=== PATIENT | female | born 1955 | race Caucasian/White ===

== ENCOUNTER → 2019-04-03 12:36 | Outpatient (CLI) | payer OTHER, SELFPAY ==
--- NOTE | 2019-04-03 12:47 | XR_ITS ---
PROCEDURE: XR CHEST 2V CLINICAL HISTORY: COUGH COMPARISON: No exams were available for comparison FINDINGS: The cardiomediastinal silhouette and pulmonary vascularity are within normal limits. There is a faint nodular density overlying the right upper lobe at the 3rd rib anteriorly. This area measures approximately 8 mm. The remaining lungs are clear. In in no acute bony anomaly. IMPRESSION: No acute finding. Nonspecific nodularity right upper lobe. This may only be be due to summation artifact, hyperostosis of the 4th rib, versus an underlying nodule. Suggest follow-up chest x-ray for confirmation. Dictated by: Juan Rodriguez MD 04/03/2019 13:08 Electronically signed by Juan Rodriguez MD in [place] 04/03/2019 13:08
== END ==
PROVIDERS: PCP Family Medicine; Visit Provider Family Medicine
DX: R05 Cough (principal)
CPT/HCPCS: 71046

== ENCOUNTER → 2019-04-08 14:30 | Outpatient (POV) | payer OTHER, SELFPAY | PROVIDERS: Visit Provider Dermatology | DX: Z00.00 Encounter for general adult medical examination without abnormal findings (principal) ==

== ENCOUNTER → 2019-04-18 14:51 | Outpatient (CLI) | payer OTHER, MEDICARE, SELFPAY ==
--- NOTE | 2019-04-18 15:01 | XR_ITS ---
PROCEDURE: XR CHEST 2V CLINICAL HISTORY: ABNORMAL CHEST X-RAY COMPARISON: XR CHEST 2V from 04/03/2019 FINDINGS: The cardiomediastinal silhouette and pulmonary vascularity are within normal limits. The lungs are clear without infiltrates, suspicious nodules, or pleural effusions. No acute bony abnormalities. IMPRESSION: No acute findings. Dictated by: Spenser Qiu 04/18/2019 15:21 Electronically signed by Spenser Qiu in [place] 04/18/2019 15:21
== END ==
PROVIDERS: PCP Family Medicine; Visit Provider Family Medicine
DX: R93.89 Abnormal findings on diagnostic imaging of other specified body structures (principal)
CPT/HCPCS: 71046

== ENCOUNTER → 2019-05-23 09:43 | Outpatient (CLI) | payer OTHER, MEDICARE, SELFPAY ==
--- NOTE | 2019-05-23 09:50 | MM_ITS ---
PROCEDURE: MM DIG SCREENING MAMM BI W/CAD CLINICAL INDICATION: SCREENING COMPARISON: No exams were available for comparison TECHNIQUE: Standard CC and MLO images were obtained. R2 CAD reviewed. FINDINGS: Average fibroglandular tissue. Negative right breast. 4 mm asymmetric densities superior left breast possibly lateral. Suggest spot compression views, mL view and left breast ultrasound for further evaluation.. IMPRESSION: BI-RAD Category: 0 Need Additional Imaging Evaluation FOLLOW-UP: IMM Immediate Follow-up Recommended (A letter has been sent to the patient regarding results of the study.) Dictated by: Juan Rodriguez MD 06/03/2019 12:37 Electronically signed by Juan Rodriguez MD in [place] 06/03/2019 12:37
== END ==
PROVIDERS: PCP Family Medicine; Visit Provider Family Medicine
DX: Z12.31 Encounter for screening mammogram for malignant neoplasm of breast (principal)
CPT/HCPCS: 77067

== ENCOUNTER → 2019-06-25 13:48 | Outpatient (CLI) | payer OTHER, MEDICARE, SELFPAY ==
--- NOTE | 2019-06-25 | US_ITS ---
PROCEDURE: MM DIG MAMM DX UNILAT LT CAD CLINICAL INDICATION: ABNORMAL MAMM Follow-up abnormal mammogram COMPARISON: MM DIG SCREENING MAMM BI W/CAD from 05/23/2019 US BREAST LT COMPLETE from 06/25/2019 TECHNIQUE: Spot-compression views performed with rolled views and left breast ultrasound FINDINGS: Average fibroglandular tissue. Minimal asymmetry noted in the superior aspect of the left breast which appears to compress out on the focal spot compression view. Not readily apparent on the CC view. Left breast ultrasound: There is an oval area of decreased echogenicity at 1 o'clock measuring 6 x 2 mm probably related to fibroglandular tissue. No malignant appearing mass or malignant-appearing microcalcification. IMPRESSION: Probably benign findings. No convincing evidence of malignancy. Recommend six-month mammographic and sonographic follow-up BI-RAD Category: 3 Probably Benign Finding Short Term Follow-up FOLLOW-UP: 6M 6Month Follow-up (A letter has been sent to the patient regarding results of the study.) Dictated by: Juan Rodriguez MD 06/28/2019 11:55 Electronically signed by Juan Rodriguez MD in [place] 06/28/2019 11:55
== END ==
PROVIDERS: PCP Family Medicine; Visit Provider Family Medicine
DX: R92.8 Other abnormal and inconclusive findings on diagnostic imaging of breast (principal)
CPT/HCPCS: 76641; 77065

== ENCOUNTER → 2020-05-25 09:41 | Outpatient (CLI) | payer MEDICARE, OTHER, SELFPAY ==
[2020-05-25 10:25] VITALS: PULSE 71; PULSE 75
--- NOTE | 2020-05-25 11:08 | MM_ITS ---
PROCEDURE: MM DIG SCREENING MAMM BI W/CAD Digital Breast Tomosynthesis Included CLINICAL INDICATION: SCREENING There is a history of breast cancer in the patient's maternal great aunt. COMPARISON: MG MM DIG SCREENING MAMM BI W/CAD from 05/23/2019 MG MM DIG MAMM DX UNILAT LT CAD from 06/25/2019 TECHNIQUE: Standard CC and MLO images and 3D Tomosynthesis was obtained. R2 CAD reviewed. FINDINGS: Fibroglandular densities are seen throughout both breast and the findings are bilateral and symmetrical. There are couple of benign-appearing microcalcifications in each breast. There is faint arterial calcification in each breast there is no suspicious lesion and no suspicious microcalcifications. IMPRESSION: Fibrofatty parenchyma with no suspicious lesions seen BI-RAD Category: 2 Benign Finding(s) FOLLOW-UP: 1YR 1 Year Follow-up (A letter has been sent to the patient regarding results of the study.) Dictated by: Dr. Renaldo Felipe MD 05/27/2020 08:55 Dr. Renaldo Felipe MD in [place] 05/27/2020 08:55
== END ==
PROVIDERS: PCP Family Medicine; Visit Provider Family Medicine
DX: Z12.31 Encounter for screening mammogram for malignant neoplasm of breast (principal); R05 Cough
CPT/HCPCS: 77063; 77067; 94060; 94640

== ENCOUNTER → 2020-06-21 10:03 | Outpatient (CLI) | payer MEDICARE, OTHER, SELFPAY ==
--- NOTE | 2020-06-21 10:10 | XR_ITS ---
PROCEDURE: XR CHEST PORTABLE CLINICAL HISTORY: COVID OUTPATIENT COMPARISON: CR XR CHEST 2V from 04/03/2019 CR XR CHEST 2V from 04/18/2019 FINDINGS: There is mild prominence of the hilum on the right which may be due to dilated ascending aorta. The lungs are clear without infiltrates, suspicious nodules, or pleural effusions. There is some sclerosis the humeral head on both sides slightly greater on the right. This is nonspecific but could be seen with avascular necrosis. IMPRESSION: 1. No acute finding. 2. 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
[2020-06-21 11:48] LABS: Basophils # 0.1 K/mm3 (0-0.2); Basophils % 0.6 % (0.1-2.0); Eosinophils # 0.2 K/mm3 (0.0-0.4); Eosinophils % 2.7 % (0.1-12.0); Hematocrit 47.4 % (37.0-47.0); Hemoglobin 15.8 g/dL (12.2-16.2); Lymphocytes # 1.1 K/mm3 (0.7-4.5); Lymphocytes % 14.5 % (10-50); Mean Corpuscular HGB Conc 33.4 g/dL (31.8-35.4); Mean Corpuscular Hemoglobin 30.9 pg (27.0-31.2); Mean Corpuscular Volume 92.4 fl (81-99); Mean Platelet Volume 8.7 fl (7.4-10.4); Monocytes # 0.3 K/mm3 (0.1-1.0); Monocytes % 4.2 % (1.7-9.3); Neutrophils # 5.9 K/mm3 (1.8-7.8); Neutrophils % 77.9 % (37.0-80.0); Platelet Count 244 K/mm3 (142-424); Red Blood Count 5.13 M/mm3 (4.20-5.40); Red Cell Distribution Width 13.3 % (11.5-17.5); White Blood Count 7.5 K/mm3 (4.8-10.8)
[2020-06-22 12:54] LABS: Covid-19 Nasal PCR Sendout Lex Not Detected
== END ==
PROVIDERS: PCP Family Medicine; Visit Provider Nurse Practitioner
DX: Z03.818 Encounter for observation for suspected exposure to other biological agents ruled out (principal)
CPT/HCPCS: 36415; 71045; 85025; U0004

== ENCOUNTER → 2022-08-14 11:11 | Outpatient (CLI) | payer MEDICARE, SELFPAY ==
[2022-08-14 19:24] LABS: Creatinine,Urine Random 61 mg/dL (Not Estab.)
[2022-08-14 19:25] LABS: Alanine Aminotransferase 22 U/L (12-78); Albumin Level 4.5 g/dl (3.5-5.0); Albumin/Globulin Ratio 1.8 (1.1-1.8); Alkaline Phosphatase 68 U/L (38-126); Anion Gap 10.6 mEq/L (5-15); Aspartate Amino Transferase 32 U/L (14-36); Bilirubin,Total 1.6 mg/dl (0.2-1.3); Blood Urea Nitrogen 9 mg/dl (7-17); Calcium 9.6 mg/dl (8.4-10.2); Carbon Dioxide 32 mmol/L (22.0-30.0); Chloride 101 mmol/L (98-107); Chol/HDL Ratio 3.2 (1-3.5); Cholesterol 174 mg/dl (140-200); Estimated Glomerular Filt Rate 99 ml/min (>60); GFR (African American) 120 ML/MIN (>60); Globulin 2.5 g/dL (1.3-3.2); Glucose 97 mg/dl (74-100); HDL Cholesterol 54 mg/dl (40-60); Microalbumin/Creatinine Ratio 22.6; Potassium 3.6 mmoL/L (3.5-5.1); Sodium 140 mmol/L (136-145); Triglycerides 156 mg/dl (30-150); VLDL Cholesterol 31 mg/dL (0-40)
[2022-08-14 19:34] LABS: Basophils % 0.5 % (0.1-2.0); Eosinophils # 0.1 K/mm3 (0.0-0.4); Eosinophils % 2.5 % (0.1-12.0); Hemoglobin 14.3 g/dL (12.2-16.2); Lymphocytes # 1.3 K/mm3 (0.7-4.5); Lymphocytes % 21.8 % (10-50); Mean Corpuscular HGB Conc 33.2 g/dL (31.8-35.4); Mean Corpuscular Hemoglobin 30.4 pg (27.0-31.2); Mean Corpuscular Volume 91.6 fl (81-99); Mean Platelet Volume 9.8 fl (7.4-10.4); Monocytes # 0.3 K/mm3 (0.1-1.0); Monocytes % 5.2 % (1.7-9.3); Neutrophils # 4.1 K/mm3 (1.8-7.8); Platelet Count 266 K/mm3 (142-424); Red Cell Distribution Width 12.8 % (11.5-17.5); White Blood Count 5.9 K/mm3 (4.8-10.8)
[2022-08-14 19:35] LABS: Direct LDL Cholesterol 88.76 mg/dL (100-129)
[2022-08-14 19:55] LABS: Thyroid Stimulating Hormone 1.23 uIU/mL (0.465-4.68)
== END ==
PROVIDERS: PCP Family Medicine; Visit Provider Family Medicine
DX: I10 Essential (primary) hypertension (principal); Z79.899 Other long term (current) drug therapy
CPT/HCPCS: 80053; 80061; 82043; 82570; 84443; 85025

== ENCOUNTER → 2022-08-29 09:46 | Outpatient (CLI) | payer MEDICARE, SELFPAY ==
--- NOTE | 2022-08-29 09:46 | MM_ITS ---
PROCEDURE INFORMATION: Exam: MG Bilateral Screening 3D Mammography Exam date and time: 08/29/2022 9:51 AM Age: 67 years old Clinical indication: Screening. Her maternal great aunt breast cancer. TECHNIQUE: Imaging protocol: Bilateral Screening tomosynthesis and 2D mammography including computer-aided detection (CAD) when performed. COMPARISON: 1. MG MM DIG SCREENING MAMM BI W/CAD 05/25/2020 11:14 AM 2. MG MM DIG MAMM DX UNILAT LT CAD 06/25/2019 2:07 PM 3. MG MM DIG SCREENING MAMM BI W/CAD 05/23/2019 10:41 AM 4. US BREAST LT COMPLETE 06/25/2019 2:17 PM FINDINGS: MAMMOGRAPHY: Breast composition: There are scattered areas of fibroglandular density. Mass: None. Architectural distortion: None. Calcifications: No suspicious calcifications. Asymmetric density: None. Skin thickening: None. Axillary adenopathy: None. IMPRESSION: No mammographic evidence of malignancy. Annual screening is recommended unless otherwise clinically indicated. ASSESSMENT: BI-RADS Category 1: Negative
--- NOTE | 2022-08-29 10:31 | XR_ITS ---
FINAL REPORT CLINICAL HISTORY: Right shoulder pain FINDINGS: Acromioclavicular joints bilateral Two views were obtained. There is no acute fracture or dislocation. There is degenerative change of the acromioclavicular joints bilaterally. There is no evidence of AC separation. With weights, there is no change in the appearance of the AC joints. IMPRESSION: Degenerative joint disease bilaterally. Reviewed, Interpreted and Dictated by Rosita Wilkins MD Transcribed by Brandy Elizabeth Authenticated and [facility]
== END ==
PROVIDERS: PCP Family Medicine; Visit Provider Family Medicine
DX: Z12.31 Encounter for screening mammogram for malignant neoplasm of breast (principal); M25.511 Pain in right shoulder
CPT/HCPCS: 73050; 77063; 77067

== ENCOUNTER 2025-04-02 08:02 | Outpatient (CLI) | payer MEDICARE, SELFPAY ==
--- NOTE | 2025-04-02 08:06 | MM_ITS ---
PROCEDURE INFORMATION: Exam: MG Bilateral Screening 3D Mammography Exam date and time: 04/02/2025 8:13 AM Age: 70 years old Clinical indication: Screening examination TECHNIQUE: Imaging protocol: Bilateral Screening tomosynthesis and 2D mammography including computer-aided detection (CAD) when performed. COMPARISON: 1. MG MM DIG SCREENING MAMM BI W/CAD 08/29/2022 9:51 AM 2. MG MM DIG SCREENING MAMM BI W/CAD 05/25/2020 11:14 AM FINDINGS: MAMMOGRAPHY: Breast composition: There are scattered areas of fibroglandular density. Mass: None. Architectural distortion: None. Calcifications: No suspicious calcifications. Asymmetric density: None. Skin thickening: None. Axillary adenopathy: None. IMPRESSION: No mammographic evidence of malignancy. Annual screening is recommended unless otherwise clinically indicated. ASSESSMENT: BI-RADS Category 1: Negative.
== END 2025-04-02 23:59 | disposition home or self-care (01) ==
LOC: RAD 08:03
PROVIDERS: PCP Family Medicine; Visit Provider Family Medicine
DX: Z12.31 Encounter for screening mammogram for malignant neoplasm of breast (principal); R92.323 Mammographic fibroglandular density, bilateral breasts
CPT/HCPCS: 77063; 77067